=== PATIENT | female | born 1965 | race Caucasian/White ===

== ENCOUNTER 2020-10-04 19:16 | Inpatient (IN) ==
[2020-10-04 21:52] LABS: Prothrombin Time 11.9 Seconds (9.4-12.1)
[2020-10-04 22:01] LABS: Bilirubin,Urine Negative (Negative); Blood,Urine Large (Negative); Budding Yeast,Urine Few per hpf (None Seen); Clarity,Urine Turbid (Clear); Color,Urine Light-Orange (Yellow); Glucose,Urine (UA) 100 mg/dL (Normal); Ketones,Urine Negative (Negative); Leukocyte Esterase,Urine Negative (Negative); Mucus,Urine Few per lpf (None-Few); Nitrite,Urine Negative (Negative); PH,Urine 5.5 pH Units (5.0-8.0); Protein,Urine 50 mg/dL (Neg-Trace); RBC,Urine TNTC per hpf (0-3); Specific Gravity,Urine > 1.030 (1.010-1.025); Squamous Epithelial Cell,Urine Few per hpf (None-Few); Urobilinogen,Urine Normal (Normal); WBC,Urine 15-30 per hpf (0-3)
[2020-10-04 22:06] LABS: BUN/Creatinine Ratio 27 (6-26); Blood Urea Nitrogen 21 mg/dL (6-20); Calcium 8.6 mg/dL (8.6-10.3); Carbon Dioxide 25 mEq/L (23-29); Chloride 107 mEq/L (98-107); Glucose 138 mg/dL (70-105); Osmolality,Calculated 295 (280-300); Potassium 3.2 mEq/L (3.5-5.1); Sodium 140 mEq/L (136-145); eGFR For African Americans > 60 (> 60); eGFR For Non-African Americans > 60 (> 60)
[2020-10-04 22:59] LABS: Basophils % 0.4 %; Eosinophils # 0.3 K/mcL (0.0-0.6); Hematocrit 38.1 % (35.3-44.9); Hemoglobin 12.5 g/dL (11.5-15.4); Immature Granulocytes % 0.9 % (0-4); Lymphocytes # 2.8 K/mcL (0.6-4.6); Lymphocytes % 33.2 %; Mean Corpuscular HGB Conc 32.8 g/dL (31.6-35.5); Mean Corpuscular Hemoglobin 29.1 pg (28.0-33.3); Mean Corpuscular Volume 88.8 fL (83.0-100.0); Monocytes # 0.7 K/mcL (0.0-1.3); Monocytes % 8.5 %; Red Blood Count 4.29 M/mcL (3.82-4.97); Red Cell Distribution Width 14.1 % (11.5-14.5); White Blood Count 8.4 K/mcL (4.3-11.1)
[2020-10-04 23:01] LABS: Neutrophils # 4.5 K/mcL (1.6-8.9)
[2020-10-04 23:03] LABS: Platelet Count < 2 K/mcL (140-400)
[2020-10-04 23:23] LABS: Platelet Estimate Marked Decrease (Normal); Smudge Cells Present (Not Present); Toxic Granulation Present (Not Present)
[2020-10-04] MEDS ORDERED: 0.9 % Sodium Chloride 250 ML ONE (23:25)
[2020-10-05] MEDS ORDERED: Isovue-370 500 ML BOTTLE IVP ONE ×2 (00:08→09:56)
[2020-10-05] MEDS ORDERED: Naloxone 0.4 MG/ML INJ IVP PRN (01:50)
[2020-10-05] MEDS ORDERED: Ondansetron 4 MG/2 ML VIAL IVP PRN (01:50)
[2020-10-05] MEDS: Pantoprazole 40 MG VIAL IVP SCH ×2 (03:05→17:43)
[2020-10-05] MEDS: Acetaminophen 325 MG TABLET PO PRN ×2 (03:33→20:03)
[2020-10-05 05:10] LABS: Hemoglobin 11.6 g/dL (11.5-15.4)
[2020-10-05 05:12] LABS: Mean Corpuscular HGB Conc 32.2 g/dL (31.6-35.5); Mean Corpuscular Hemoglobin 28.9 pg (28.0-33.3); Mean Corpuscular Volume 89.8 fL (83.0-100.0); Red Blood Count 4.01 M/mcL (3.82-4.97); White Blood Count 6.4 K/mcL (4.3-11.1)
[2020-10-05 05:20] LABS: Platelet Count < 2 K/mcL (140-400)
[2020-10-05 05:22] LABS: INR 1.1; Prothrombin Time 12.2 Seconds (9.4-12.1)
[2020-10-05 05:24] LABS: Activated Partial Thrombo Time 23.7 Seconds (26.0-36.0)
[2020-10-05 05:27] LABS: BUN/Creatinine Ratio 26 (6-26); Blood Urea Nitrogen 20 mg/dL (6-20); Calcium 8.1 mg/dL (8.6-10.3); Carbon Dioxide 27 mEq/L (23-29); Chloride 108 mEq/L (98-107); Glucose 103 mg/dL (70-105); Osmolality,Calculated 293 (280-300); Potassium 3.8 mEq/L (3.5-5.1); Sodium 140 mEq/L (136-145); eGFR For African Americans > 60 (> 60); eGFR For Non-African Americans > 60 (> 60)
[2020-10-05] MEDS ORDERED: IVIG (wt based) Privigen 5 GM/50 ML INFUS..BTL IVC ONE (07:00)
[2020-10-05] MEDS ORDERED: Immune Glob, Gamma (Gammagard) 20 GM/200 ML INFUS..BTL IVC ONE ×3 (07:00→10:00)
[2020-10-05] MEDS ORDERED: Immune Glob, Gamma (Gammagard) 10 GM/100 ML INFUS..BTL IVC ONE (07:00)
[2020-10-05] MEDS ORDERED: IMMUNE GLOBULIN IVC ONE (07:00)
[2020-10-05 09:07] LABS: Basophils # 0.1 K/mcL (0.0-0.2); Basophils % 0.8 %; Eosinophils # 0.2 K/mcL (0.0-0.6); Eosinophils % 2.9 %; Immature Granulocytes % 1.1 % (0-4); Lymphocytes # 1.5 K/mcL (0.6-4.6); Lymphocytes % 23.9 %; Monocytes # 0.4 K/mcL (0.0-1.3); Neutrophils # 4.2 K/mcL (1.6-8.9); Segmented Neutrophils % 65.3 %
[2020-10-05 10:50] LABS: Albumin 3.8 g/dL (3.5-5.7); Albumin/Globulin Ratio 1.3 (1.1-2.2); Bilirubin,Direct 0.1 mg/dL (0.0-0.2); Bilirubin,Indirect 0.3 mg/dL (0.0-1.0); Bilirubin,Total 0.4 mg/dL (0.3-1.0); Globulin 2.9 g/dL (2.4-3.5); Total Protein 6.7 g/dL (6.4-8.9)
[2020-10-05 14:49] LABS: Thyroid Stimulating Hormone 1.937 mcIU/mL (0.340-5.600)
[2020-10-05] MEDS: Immune Glob, Gamma (Gammagard) 20 GM/200 ML INFUS..BTL IVC ONE ×2 (20:06→21:48)
[2020-10-05] MEDS: Fluticasone Propionate Nasal 50 MCG/SPRAY BOTTLE NS SCH (22:34)
[2020-10-06] MEDS ORDERED: SUMAtriptan succinate 25 MG TABLET PO ONE (00:07)
[2020-10-06 05:08] LABS: Lymphocytes % 16.5 %; Red Cell Distribution Width 13.7 % (11.5-14.5)
[2020-10-06 05:10] LABS: Basophils % 0.4 %; Hematocrit 35.2 % (35.3-44.9); Hemoglobin 11.8 g/dL (11.5-15.4); Immature Granulocytes % 1.6 % (0-4); Immature Platelets 20.1 % (1.1-6.1); Lymphocytes # 1.4 K/mcL (0.6-4.6); Mean Corpuscular HGB Conc 33.5 g/dL (31.6-35.5); Mean Corpuscular Hemoglobin 29.4 pg (28.0-33.3); Mean Corpuscular Volume 87.8 fL (83.0-100.0); Monocytes # 0.5 K/mcL (0.0-1.3); Monocytes % 6.1 %; Neutrophils # 6.5 K/mcL (1.6-8.9); Red Blood Count 4.01 M/mcL (3.82-4.97); Segmented Neutrophils % 75.4 %; White Blood Count 8.6 K/mcL (4.3-11.1)
[2020-10-06 05:20] LABS: Platelet Count 7 K/mcL (140-400)
[2020-10-06 05:25] LABS: Alanine Aminotransferase 15 Units/L (7-52); Albumin 3.4 g/dL (3.5-5.7); Albumin/Globulin Ratio 0.8 (1.1-2.2); Alkaline Phosphatase 50 Units/L (34-104); Aspartate Amino Transferase 12 Units/L (13-39); BUN/Creatinine Ratio 22 (6-26); Bilirubin,Total 0.3 mg/dL (0.3-1.0); Blood Urea Nitrogen 15 mg/dL (6-20); Calcium 8.6 mg/dL (8.6-10.3); Carbon Dioxide 24 mEq/L (23-29); Chloride 107 mEq/L (98-107); Globulin 4.5 g/dL (2.4-3.5); Glucose 136 mg/dL (70-105); Osmolality,Calculated 285 (280-300); Potassium 4.1 mEq/L (3.5-5.1); Sodium 136 mEq/L (136-145); Total Protein 7.9 g/dL (6.4-8.9); eGFR For African Americans > 60 (> 60); eGFR For Non-African Americans > 60 (> 60)
[2020-10-06] MEDS ORDERED: Pantoprazole 40 MG VIAL IVP SCH (06:30)
[2020-10-06] MEDS ORDERED: Immune Glob, Gamma (Gammagard) 10 GM/100 ML INFUS..BTL IVC ONE (09:00)
[2020-10-06] MEDS ORDERED: Immune Glob, Gamma (Gammagard) 20 GM/200 ML INFUS..BTL IVC ONE ×4 (09:00)
[2020-10-06] MEDS ORDERED: Immune Glob, Gamma (Gammagard) 30 GM/300 ML INFUS..BTL IVC ONE ×3 (09:00)
[2020-10-06] MEDS: PARoxetine 20 MG TABLET PO SCH (10:23)
[2020-10-06] MEDS: BuPROPion XL (24 HR) 150 MG TABLET PO SCH (10:23)
[2020-10-06] MEDS: Fluticasone Propionate Nasal 50 MCG/SPRAY BOTTLE NS SCH ×2 (10:24→20:29)
[2020-10-06] MEDS: *HR* LORazepam 0.5 MG TABLET PO PRN ×2 (10:38→21:07)
[2020-10-06] MEDS: Acetaminophen 325 MG TABLET PO PRN (10:39)
[2020-10-06] MEDS: SUMAtriptan succinate 25 MG TABLET PO PRN ×2 (14:29→21:07)
[2020-10-07 03:30] LABS: Basophils % 0.2 %; Hematocrit 33.9 % (35.3-44.9); Hemoglobin 11.6 g/dL (11.5-15.4); Immature Platelets 8.1 % (1.1-6.1); Lymphocytes # 1.8 K/mcL (0.6-4.6); Lymphocytes % 18.1 %; Mean Corpuscular HGB Conc 34.2 g/dL (31.6-35.5); Mean Corpuscular Hemoglobin 31.4 pg (28.0-33.3); Mean Corpuscular Volume 91.9 fL (83.0-100.0); Mean Platelet Volume 11.6 fL (9.4-12.4); Monocytes # 0.5 K/mcL (0.0-1.3); Neutrophils # 7.3 K/mcL (1.6-8.9); Red Blood Count 3.69 M/mcL (3.82-4.97); Segmented Neutrophils % 74.7 %; White Blood Count 9.8 K/mcL (4.3-11.1)
[2020-10-07 03:35] LABS: Platelet Count 31 K/mcL (140-400)
[2020-10-07 03:48] LABS: Alanine Aminotransferase 14 Units/L (7-52); Albumin 3.2 g/dL (3.5-5.7); Albumin/Globulin Ratio 0.5 (1.1-2.2); Alkaline Phosphatase 42 Units/L (34-104); Aspartate Amino Transferase 13 Units/L (13-39); BUN/Creatinine Ratio 26 (6-26); Bilirubin,Total 0.3 mg/dL (0.3-1.0); Blood Urea Nitrogen 22 mg/dL (6-20); Calcium 8.6 mg/dL (8.6-10.3); Carbon Dioxide 23 mEq/L (23-29); Chloride 104 mEq/L (98-107); Globulin 6.1 g/dL (2.4-3.5); Glucose 108 mg/dL (70-105); Osmolality,Calculated 278 (280-300); Potassium 4.2 mEq/L (3.5-5.1); Sodium 132 mEq/L (136-145); Total Protein 9.3 g/dL (6.4-8.9); eGFR For African Americans > 60 (> 60); eGFR For Non-African Americans > 60 (> 60)
[2020-10-07 05:09] VITALS: BP 140/91; PULSE 99; TEMP 98.2; O2SAT 98
[2020-10-07] MEDS: Acetaminophen 325 MG TABLET PO PRN (05:49)
[2020-10-07 08:40] LABS: Hepatitis B Surface Antigen Nonreactive (Nonreactive)
[2020-10-07] MEDS: BuPROPion XL (24 HR) 150 MG TABLET PO SCH (08:41)
[2020-10-07] MEDS: SUMAtriptan succinate 25 MG TABLET PO PRN (08:41)
[2020-10-07] MEDS: PARoxetine 20 MG TABLET PO SCH (08:41)
[2020-10-07] MEDS: Fluticasone Propionate Nasal 50 MCG/SPRAY BOTTLE NS SCH (08:41)
[2020-10-07 09:09] LABS: Hepatitis C Virus Antibody Nonreactive (Nonreactive)
[2020-10-07 09:10] LABS: Hepatitis B Core IgM Nonreactive (Nonreactive)
[2020-10-07 09:11] LABS: HIV-1&2 Antibody & p24 Ag Nonreactive (Nonreactive)
[2020-10-07 09:12] LABS: Hepatitis A Antibody IgM Nonreactive (Nonreactive)
[2020-10-07] MEDS: *HR* LORazepam 0.5 MG TABLET PO PRN (12:06)
[2020-10-07] MEDS ORDERED: Dexamethasone Sodium Phos/PF 10 MG/ML VIAL PO ONE (14:30)
== END 2020-10-07 15:18 | disposition home or self-care (01) | DRG 661 ==
LOC: EMEROOARM 19:16 → 2NENU 19:16 → SUATTDRO 10-05 01:55 → 2NENU 10-05 02:30
PROVIDERS: ADMIT Internal Medicine; ATTEND Family Medicine